=== PATIENT | male | born 1970 | race Hispanic/Latino ===

== ENCOUNTER 2018-06-22 16:30 | Outpatient (RCR) | payer OTHER | END 2018-06-25 | LOC: OT 16:30 | PROVIDERS: ATTEND Specialist | DX: S62.397A Other fracture of fifth metacarpal bone, left hand, initial encounter for closed fracture (principal); M79.642 Pain in left hand; M25.642 Stiffness of left hand, not elsewhere classified; M25.632 Stiffness of left wrist, not elsewhere classified; R53.1 Weakness; R27.9 Unspecified lack of coordination ==